=== PATIENT | male | born 1975 | race American Indian/Alaskan Native ===

== ENCOUNTER 2018-07-21 21:39 | Emergency (ER) | payer BC, OTHER ==
[2018-07-21] MEDS ORDERED: CALCIUM CHLORIDE IV ONE (21:50)
[2018-07-21] MEDS ORDERED: ADRENALIN ONE (21:50)
--- NOTE | 2018-07-21 21:52 | Emergency Department Report ---
ED CPR HPI - General Chief Complaint: Cardiac Arrest/CPR Stated Complaint: CARDIAC ARREST Time Seen by Provider: 07/21/18 21:50 Source: EMS (verbal report received from EMS.ems notes not available at time of chart dictation) Mode of arrival: Stretcher Limitations: Altered Mental Status - History of Present Illness Initial Comments: This is a 42-year-old gentleman who was brought to the hospital by EMS as an out of hospital cardiac arrest. As per verbal report from EMS, patient found at home, collapsed in the bathroom, for at least one half hour. Last known well time is not exactly known. Family indicated they started chest compressions and contacted 911. EMS reports the initial rhythm was not shockable, pulseless. EMS intubated in the field, continued high quality CPR, and gave standard ACLS medications. Transportation time to the emergency room approximately 25 minutes. Upon arrival to the emergency room, glucose within normal limits, patient is pulseless, asystolic. He continues to receive high quality CPR, and standard ACLS medications. Pupils midpoint and do not react to light bilaterally. Unfortunately, pulses cannot be obtained, and resuscitation efforts are terminated secondary to medical futility and prolonged down time. The patient's family was subsequently informed. MD Complaint: found unresponsive -: minute(s) Place: home Bystander CPR Performed: Yes AED Applied by Bystander/J2E[employer] Programmer: No Shock Advised: No Initial Findings in the Field: unresponsive, no pulse, PEA ROSC in the Field: No Associated Injuries: No Treatments Prior to Arrival: intubation, chest compressions, epinephrine mgs # - Related Data Previous Rx's Medication Instructions Recorded Last Taken Type RX: Aspirin [Aspirin TAB] 325 mg PO QDAY #30 tablet 07/11/13 Unknown Rx RX: Metoprolol [Lopressor TAB] 25 mg PO BID #60 tablet 07/11/13 Unknown Rx RX: NIFEdipine XL [Procardia Xl] 60 mg PO QDAY #30 tablet 07/11/13 Unknown Rx RX: Prasugrel [Effient] 10 mg PO QDAY #30 tablet 07/11/13 Unknown Rx RX: Rosuvastatin (Nf) [Crestor] 20 mg PO QHS #30 tablet 07/11/13 Unknown Rx RX: glipiZIDE [Glucotrol] 5 mg PO BID #60 tablet 07/11/13 Unknown Rx RX: hydrALAZINE [Apresoline TAB] 50 mg PO Q8H #90 tablet 07/11/13 Unknown Rx Allergies Allergy/AdvReac Type Severity Reaction Status Date / Time No Known Allergies Allergy Unverified 07/06/13 02:33 ED Review of Systems ROS: Stated complaint: CARDIAC ARREST Other details as noted in HPI Comment: Unobtainable due to pts medical conditions ED Past Medical Hx - Past Medical History Hx Hypertension: No Hx Diabetes: Yes Hx Kidney Stones: Yes Additional medical history: left knee - Social History Smoking Status: Never Smoker - Medications Home Medications: Home Medications Medication Instructions Recorded Confirmed Last Taken Type RX: Aspirin [Aspirin TAB] 325 mg PO QDAY #30 tablet 07/11/13 Unknown Rx RX: Metoprolol [Lopressor TAB] 25 mg PO BID #60 tablet 07/11/13 Unknown Rx RX: NIFEdipine XL [Procardia Xl] 60 mg PO QDAY #30 tablet 07/11/13 Unknown Rx RX: Prasugrel [Effient] 10 mg PO QDAY #30 tablet 07/11/13 Unknown Rx RX: Rosuvastatin (Nf) [Crestor] 20 mg PO QHS #30 tablet 07/11/13 Unknown Rx RX: glipiZIDE [Glucotrol] 5 mg PO BID #60 tablet 07/11/13 Unknown Rx RX: hydrALAZINE [Apresoline TAB] 50 mg PO Q8H #90 tablet 07/11/13 Unknown Rx ED Physical Exam - General Limitations: Other (nonverbal, intubated) General appearance: other (patient is nonverbal) - Head Head exam: Present: atraumatic - Eye Eye exam: Absent: normal appearance (cataract noted in the right eye. Left eye is 3-4 mm, and does not react to light) - ENT ENT exam: Present: normal exam, other (endotracheal tube is noted in the orophar ynx) - Neck Neck exam: Present: normal inspection - Respiratory Respiratory exam: Present: other (there is a right hemithorax dialysis access catheter noted.). Absent: normal lung sounds bilaterally (patient has no breath sounds) - Cardiovascular Cardiovascular Exam: Present: other (there are no pulses) - GI/Abdominal GI/Abdominal exam: Present: soft - exam: Present: normal inspection External exam: Present: normal external exam - Extremities Exam Extremities exam: Present: normal inspection, pedal edema, other (patient has no pulses) - Back Exam Back exam: Present: normal inspection - Neurological Exam Neurological exam: Present: altered, other (GCS of 3, intubated) - Skin Skin exam: Present: dry ED Medical Decision Making - Medical Decision Making Differential diagnosis, including but not limited to: Hyperkalemia, pulmonary embolus, tension pneumothorax, acute coronary syndrome Labs 07/21/18 21:46 POC Glucose 149 H Critical care attestation.: If time is entered above; I have spent that time in minutes in the direct care of this critically ill patient, excluding procedure time. ED Disposition Clinical Impression: Cardiac arrest Disposition: DC-20 Is pt being admited?: No Does the pt Need Aspirin: No Condition: Undetermined
== END 2018-07-22 00:40 ==
LOC: ED 21:39
DX: I46.9 Cardiac arrest, cause unspecified (principal); E11.9 Type 2 diabetes mellitus without complications; Z87.442 Personal history of urinary calculi
CPT/HCPCS: 31500; 82962; 92950; 99285; J0171